=== PATIENT | female | born 1940 | race Caucasian/White ===

== ENCOUNTER → 2017-06-30 13:40 | Outpatient (CLI) | payer MEDICARE, OTHER, SELFPAY ==
--- NOTE | 2017-06-30 | US_ITS ---
US Arterial Ankle Brachial Ind Bilateral Lower extremity physiologic arterial evaluation HISTORY: Never smoked. Bilateral claudication and rest pain. No history of diabetes Hypertension hyperlipidemia bilateral rest pain bilateral claudication . TECHNIQUE: Segmental pressures obtained of both right and left leg. These are compared to brachial blood pressure to yield index at each level sampled including summary LULY. The data sheets from the procedure are available in PACS FINDINGS Rest study only performed today No prior studies available for comparison. Blood pressures reported are in millimeters mercury. ======== RIGHT LEG LULY = 1.0. Right TBI = 0.8 Normal pulses and waveforms on left Brachial BP: 1 cm Thigh BP: BP 184 with index 1.07 Calf BP: BP 188 with index 1.09 Ankle PT: BP 187 with index 1.09 Ankle DP : BP 170 with index 0.99 Digit =BP 140 with index 0.81 ======= LEFT LEG LULY = 1.1 Left TBI = 0.7 . Normal pulses and waveforms on left Brachial BPD: 168 Thigh BP: BP 204 with index 1.19 Calf BP: BP 199 with index 1.16 Ankle PT:BP 189 with index 1.1 Ankle DP: BP 187 with index 1.09 Digit = BP 127 with index 0.74 IMPRESSION: .Pulses and waveforms: Normal Bilateral LEFT LEG LULY = 1.1 Left TBI = 0.7 . ======== RIGHT LEG LULY = 1.0. Right TBI = 0.8
== END ==
PROVIDERS: Family Provider Nurse Practitioner Family; PCP Nurse Practitioner Family; Visit Provider Nurse Practitioner Family
DX: I70.213 Atherosclerosis of native arteries of extremities with intermittent claudication, bilateral legs (principal); R60.0 Localized edema
CPT/HCPCS: 93306; 93922

== ENCOUNTER → 2018-04-10 15:41 | Outpatient (CLI) | payer MEDICARE, OTHER, SELFPAY ==
--- NOTE | 2018-04-10 15:45 | MR_ITS ---
MR lumbar spine wo con, MR 3-d myelogram/MRCP HISTORY: PT states low back pain X2-3 Months. Bilateral leg pain, RT leg worse. RT leg numbness and bilateral buttock pain. No injury. ITS.REASON: LOW BACK PAIN ORDERING PHYSICIAN: Bell Gutierrez PATIENT AGE: 77 years Comparison: 07/22/16 TECHNIQUE: Standard multiplanar multiecho sequences are performed without contrast. 3-D MIP and myelographic images are also rendered and reviewed FINDINGS: There is normal alignment. The spinal cord ends at the T12-L1 level. IMPRESSION: T11-T12: Mild degenerative disc disease with left sided osteophytes. T12-L1: Unremarkable. L1-L2: Unremarkable. L2-L3: Unremarkable. L3-L4: Minimal concentric bulging disc and mild facet and ligamentum hypertrophy. L4-5: Bulging disc along with severe facet and ligamentum flavum hypertrophic change with severe canal stenosis which has slightly progressed compared to the previous exam. There is severe bilateral lateral recess narrowing and severe bilateral foraminal narrowing at this level. Minimal anterolisthesis of L4 2 to 3 mm. L5-S1: Mild degenerative disc disease with bulging disc along with moderate facet and ligamentum flavum hypertrophy. There is transverse narrowing of the canal and 9 mm with bilateral lateral recess and moderate right-sided foraminal narrowing. 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 IMPRESSION: 1. Severe spinal stenosis at L4-L5 with bulging disc along with severe facet and ligamentum flavum hypertrophic change with severe canal stenosis which has slightly progressed compared to the previous exam. There is severe bilateral lateral recess narrowing and severe bilateral foraminal narrowing at this level. Minimal anterolisthesis of L4 2 to 3 mm. 2. Mild degenerative disc disease at L5-S1 with bulging disc along with moderate facet and ligamentum flavum hypertrophy. There is transverse narrowing of the canal and 9 mm with bilateral lateral recess and moderate right-sided foraminal narrowing.
== END ==
PROVIDERS: PCP Nurse Practitioner Family; Visit Provider Nurse Practitioner Family
DX: M54.5 Low back pain (principal)
CPT/HCPCS: 72148; 76376

== ENCOUNTER 2021-03-29 13:00 | Outpatient (RCR) | payer MEDICARE, OTHER, SELFPAY | END 2021-04-21 09:05 | disposition home or self-care (01) | LOC: PT.CARL 13:00 | PROVIDERS: PCP Nurse Practitioner Family; Visit Provider Nurse Practitioner Family | DX: I63.9 Cerebral infarction, unspecified (principal) | CPT/HCPCS: 97110; 97112; 97163; 97530 ==